=== PATIENT | female | born 1955 | race Caucasian/White ===

== ENCOUNTER 2018-04-30 17:31 | Inpatient (IN) | payer MEDICAID ==
[~2018-04-30] VITALS: Ht 152.4 cm; Wt 62.2 kg
[2018-04-30 17:35] VITALS: Ht 152.4 cm; Wt 62.2 kg
[2018-04-30 19:03] LABS: CARBON DIOXIDE 26.9 mmol/L (21-32); CREATININE SERUM 1.2 mg/dL (0.6-1.0)
[2018-04-30 19:04] LABS: PLATELET COUNT 110 x10^3mcL (130-400); RED CELL DISTRIBUTION WIDTH 16.1 % (11.5-14.5)
[2018-04-30 19:10] LABS: ALBUMIN 3.7 g/dL (3.4-5.0); BILIRUBIN TOTAL 0.9 mg/dL (0.20-1.00); TOTAL PROTEIN, SERUM 7.8 g/dL (6.4-8.2)
[2018-04-30 21:05] LABS: T3 TOTAL 0.94 ng/mL
[2018-04-30 21:06] LABS: MAGNESIUM 2.6 mg/dL (1.8-2.4); PHOSPHOROUS 3.4 mg/dL (2.5-4.9)
[2018-04-30 21:10] LABS: CHOLESTEROL/HDL RATIO 2.2
[2018-04-30 21:17] LABS: FREE T4 1.27 ng/dL (0.76-1.46); FREE THYROXINE INDEX 3.2 ug/dL (1.4-4.5); T4(THYROXINE) 9.8 ug/dL (4.7-13.3)
[2018-04-30 21:20] VITALS: BP 137/69
[2018-04-30 21:56] VITALS: BP 137/69
[2018-05-01 05:33] VITALS: BP 91/64
[2018-05-01 06:54] LABS: BASOPHIL % 1.1 % (0-2)
[2018-05-01 07:03] LABS: PLATELET COUNT 102 x10^3mcL (130-400); RED CELL DISTRIBUTION WIDTH 16.6 % (11.5-14.5)
[2018-05-01 07:05] LABS: CALCIUM 8.6 mg/dL (8.5-10.1); CARBON DIOXIDE 28.6 mmol/L (21-32); CREATININE SERUM 1.3 mg/dL (0.6-1.0); MAGNESIUM 2.5 mg/dL (1.8-2.4); POTASSIUM SERUM 4.2 mmol/L (3.5-5.1)
[2018-05-01 09:41] VITALS: BP 100/55
[2018-05-01 10:32] LABS: UA SPECIFIC GRAVITY 1.015 (1.005-1.035); microscopic required? YES; urine erythrocyte NEGATIVE (NEGATIVE)
[2018-05-01 10:47] LABS: AMPHETAMINE QUAL UR NONE DETECTED (See below)
[2018-05-01 12:19] LABS: IRON 35 ug/dL (50-170); TOTAL IRON BINDING CAPACITY 343 ug/dL (250-450)
[2018-05-01 14:35] VITALS: BP 110/57
[2018-05-01 18:04] VITALS: BP 118/64
[2018-05-01 20:43] VITALS: BP 114/48
[2018-05-02 05:55] VITALS: BP 112/57
[2018-05-02 06:29] LABS: BASOPHIL % 0.8 % (0-2)
[2018-05-02 06:32] LABS: PLATELET COUNT 115 x10^3mcL (130-400); RED CELL DISTRIBUTION WIDTH 15.6 % (11.5-14.5)
[2018-05-02 06:48] LABS: CALCIUM 8.5 mg/dL (8.5-10.1); CARBON DIOXIDE 24.1 mmol/L (21-32); CREATININE SERUM 1.2 mg/dL (0.6-1.0); MAGNESIUM 2.4 mg/dL (1.8-2.4); PHOSPHOROUS 3.9 mg/dL (2.5-4.9); POTASSIUM SERUM 4.1 mmol/L (3.5-5.1)
[2018-05-02 09:14] VITALS: BP 123/54
[2018-05-02 13:25] VITALS: BP 123/57
[2018-05-02] MEDS ORDERED: LEVAQUIN750 MG PO (14:46)
[2018-05-02] MEDS ORDERED: ALD50 PO (15:16)
[2018-05-02] MEDS ORDERED: METOPROLOL SUCC25 M2 PO (15:16)
[2018-05-02] MEDS ORDERED: L40I PO (15:16)
[2018-05-02] MEDS ORDERED: ECO81 PO (15:16)
[2018-05-02 15:19] VITALS: BP 123/57
== END 2018-05-02 17:33 | disposition home or self-care (01) | DRG 190 ==
LOC: ED 17:31 → DU 20:15
PROVIDERS: Emergency Medicine; Family Medicine; Internal Medicine Gastroenterology
DX: I21.A1 Myocardial infarction type 2 (principal); N17.0 Acute kidney failure with tubular necrosis; D69.59 Other secondary thrombocytopenia; I27.20 Pulmonary hypertension, unspecified; E83.41 Hypermagnesemia; I07.1 Rheumatic tricuspid insufficiency; I50.9 Heart failure, unspecified; R18.8 Other ascites; K74.60 Unspecified cirrhosis of liver; I48.2 Chronic atrial fibrillation; N39.0 Urinary tract infection, site not specified; E03.9 Hypothyroidism, unspecified; Z68.25 Body mass index [BMI] 25.0-25.9, adult; Z95.0 Presence of cardiac pacemaker
CPT/HCPCS: 83880; 84439; J0696; J1650; J1940; J7030; Q0092; Q9967

== ENCOUNTER 2018-05-10 19:45 | Emergency (ER) | payer MEDICAID ==
[~2018-05-10] VITALS: Ht 147.3 cm; Wt 60.8 kg
[~2018-05-10 19:45] MED LIST: ALD50 PO; ECO81 PO; L40I PO; LEVAQUIN750 MG PO; METOPROLOL SUCC25 M2 PO
[2018-05-10 19:50] VITALS: Ht 147.3 cm; Wt 60.8 kg
[2018-05-10 22:44] LABS: BASOPHIL % 0.8 % (0-2)
[2018-05-10 22:48] LABS: PLATELET COUNT 108 x10^3mcL (130-400); RED CELL DISTRIBUTION WIDTH 16.8 % (11.5-14.5)
[2018-05-10 22:53] LABS: CALCIUM 9.2 mg/dL (8.5-10.1); CARBON DIOXIDE 26.8 mmol/L (21-32); CREATININE SERUM 1.2 mg/dL (0.6-1.0); POTASSIUM SERUM 3.8 mmol/L (3.5-5.1)
[2018-05-10 22:58] LABS: ALBUMIN 3.4 g/dL (3.4-5.0); BILIRUBIN TOTAL 0.8 mg/dL (0.20-1.00); TOTAL PROTEIN, SERUM 7.4 g/dL (6.4-8.2)
[2018-05-10 23:15] LABS: APPEARANCE FLUID BLOODY; COLOR FLUID RED; RBC FLUID 1795 /cumm; SOURCE FLUID ASCETIC FLD; WBC FLUID 0 /cumm
[2018-05-11 01:15] VITALS: BP 117/52
== END 2018-05-11 01:15 | disposition home or self-care (01) ==
LOC: ED 19:45
PROVIDERS: Emergency Medicine
DX: R18.8 Other ascites (principal); I10 Essential (primary) hypertension
CPT/HCPCS: 36415; 49083